=== PATIENT | male | born 1990 | race Caucasian/White ===

== ENCOUNTER 2018-07-05 13:07 | Emergency (ER) | payer SELFPAY ==
[2018-07-05 13:20] VITALS: BMI 28.3
[2018-07-05] MEDS ORDERED: FAMOTIDINE 20 MG/50 ML IVPB 20 MG/50 ML MG IVPB ONE ×2 (14:01→14:55)
[2018-07-05] MEDS ORDERED: ACETAMINOPHEN 1000 MG/100 ML VIAL (NON FORMULARY) IVPB ONE (14:01)
[2018-07-05] MEDS ORDERED: SODIUM CHLORIDE 1,000 ML IV STA (14:01)
[2018-07-05] MEDS ORDERED: MAG HYDROX/AL HYDROX/SIMETH -MYLANTA- ORAL SUSPENSION PO ONE (14:01)
--- NOTE | 2018-07-05 14:21 | PDOC ---
History of Present Illness - History of Present Illness Initial Comments: 07/05/18 14:33 The patient is a 27 year old male, with no significant past medical history, who presents to the emergency department with, palpitations, 1 hour of chest pain with associated shortness of breath and near syncope. 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 As per patient, he had a similar episode 3 days ago (07/02) at which time he was evaluated at [facility] with a negative workup which included a chest x-ray and labs. Patient notes another episode today, prompting his arrival to the ED. He denies similar episodes in the past. He denies any worsening or exacerbating factors. He denies any recent fevers, chills, headache or dizziness. He denies any recent nausea, vomit, diarrhea or constipation. He denies any recent dysuria , frequency, urgency or hematuria. Allergies: Penicillins. <Ling Owusu - Last Filed: 07/05/18 19:01> - General History Source: Patient Exam Limitations: No Limitations <Karan Ch - Last Filed: 07/05/18 19:07> - General Chief Complaint: Chest Pain Stated Complaint: CHEST PAIN Time Seen by Provider: 07/05/18 14:01 Past History <Ling Owusu - Last Filed: 07/05/18 19:01> - Past Medical History COPD: No - Suicide/Smoking/Psychosocial Hx Smoking History: Never smoked <Karan Ch - Last Filed: 07/05/18 19:07> - Past Medical History Allergies/Adverse Reactions: Allergies Allergy/AdvReac Type Severity Reaction Status Date / Time Penicillins Allergy Verified 07/05/18 13:20 Home Medications: Ambulatory Orders Pantoprazole Sodium [Protonix] 40 mg PO DAILY #30 tablet. 07/05/18 Ranitidine HCl [Zantac] 150 mg PO BID PRN #20 tablet 07/05/18 Review of Systems - Review of Systems Comments:: 07/05/18 14:33 GENERAL/CONSTITUTIONAL: No fever or chills. No weakness. HEAD, EYES, EARS, NOSE AND THROAT: No change in vision. No ear pain or discharge. No sore throat. CARDIOVASCULAR: + chest pain + shortness of breath +palpitations. RESPIRATORY: No cough, wheezing, or hemoptysis. GASTROINTESTINAL: +episgastric pain. No nausea, vomiting, diarrhea or constipation. GENITOURINARY: No dysuria, frequency, or change in urination. MUSCULOSKELETAL: +back pain. No joint or muscle swelling or pain. No neck pain. SKIN: No rash NEUROLOGIC: + Near syncope. No headache, vertigo, or change in strength/ sensation. ENDOCRINE: No increased thirst. No abnormal weight change. HEMATOLOGIC/LYMPHATIC: No anemia, easy bleeding, or history of blood clots. ALLERGIC/IMMUNOLOGIC: No hives or skin allergy. All Other Systems: Reviewed and Negative <Ling Owusu - Last Filed: 07/05/18 19:01> *Physical Exam - Vital Signs Last Vital Signs Temp Pulse Resp BP Pulse Ox 97.9 F 94 H 18 150/78 98 07/05/18 13:18 07/05/18 13:18 07/05/18 13:18 07/05/18 13:18 07/05/18 13:18 - Physical Exam Comments: 07/05/18 15:03 GENERAL: Awake, alert, and fully oriented, in no acute distress HEAD: No signs of trauma NECK: Normal ROM, supple, no lymphadenopathy, JVD, or masses LUNGS: Breath sounds equal, clear to auscultation bilaterally. No wheezes, and no crackles HEART: Regular rate and rhythm, normal S1 and S2, no murmurs, rubs or gallops ABDOMEN: +Epigastric tenderness. Negative [place] sign. Soft. No rebound. No masses EXTREMITIES: Normal range of motion, no edema. No clubbing or cyanosis. No cords, erythema, or tenderness NEUROLOGICAL: Cranial nerves II through XII grossly intact. Normal speech, normal gait SKIN: Warm, Dry, normal turgor, no rashes or lesions noted. <Ling Owusu - Last Filed: 07/05/18 19:01> - Vital Signs Last Vital Signs Temp Pulse Resp BP Pulse Ox 97.9 F 94 H 18 150/78 98 07/05/18 13:18 07/05/18 13:18 07/05/18 13:18 07/05/18 13:18 07/05/18 13:18 <Karan Ch - Last Filed: 07/05/18 19:07> Heart Score/ECG Review #1 ECG reviewed & interpreted by me at: 13:05 07/05/18 14:21 NSR 102, rightaward axis, incomplete RBBB, QTC 443 msec, no std/blayne <Karan Ch - Last Filed: 07/05/18 19:07> ED Treatment Course - LABORATORY CBC & Chemistry Diagram: 07/05/18 14:00 07/05/18 14:00 - ADDITIONAL ORDERS Additional order review: 07/05/18 14:00 RBC 5.39 MCV 87.8 MCHC 33.4 RDW 13.6 MPV 9.0 Neutrophils % 51.3 Lymphocytes % 39.0 Monocytes % 7.2 Eosinophils % 1.7 Basophils % 0.8 <Ling Owusu - Last Filed: 07/05/18 19:01> - LABORATORY CBC & Chemistry Diagram: 07/05/18 14:00 07/05/18 14:00 - RADIOLOGY Radiology Studies Ordered: Category Date Time Status CHEST PA & LAT [RAD] Stat Radiology 07/05/18 14:01 Ordered <Karan Ch - Last Filed: 07/05/18 19:07> Medical Decision Making - Medical Decision Making 07/05/18 14:18 A portion of this note was documented by scribe services under my direction. I have reviewed the details of the note, within reason, and agree with the documentation with the following case summary and management plan written by me. Patient treated in the ED. Nursing notes are reviewed and incorporated into the medical decision-making. Vital signs reviewed. Peripheral IV access obtained by the nurse, laboratory studies are drawn and sent, reviewed and interpreted by myself. Vital Signs Temp Pulse Resp BP Pulse Ox 97.9 F 94 H 18 150/78 98 07/05/18 13:18 07/05/18 13:18 07/05/18 13:18 07/05/18 13:18 07/05/18 13:18 27-year-old male with no medical history presents with chest pain rating to the back. The patient reports that he was well this morning. He was at work when he ate rice. Started developing a sharp epigastric and substernal chest pain rating to the mid back. Reports feeling somewhat short of breath. No fevers or chills. Denies prior history of cardiac disease or blood clots. Patient reported that he had this similar incident several days ago and went to [facility]. He had a chest x-ray blood work done and was told that he was fine. The patient was discharged. Here the patient's EKG demonstrates rightward axis deviation and incomplete right bundle branch block. These findings or potentially concerning for pulmonary embolism. Though with the abdominal pain, I suspect this may be gastritis. Aortic dissection is within the differential though less likely. We' ll obtain lipase rule out pancreatitis. Labs, IV fluids, chest x-ray. Likely will need a CAT scan reassess. 07/05/18 18:20 CBC, BMP 07/05/18 14:00 07/05/18 14:00 CMP Sodium 138 mmol/L (136-145) 07/05/18 14:00 Potassium 3.4 mmol/L (3.5-5.1) L 07/05/18 14:00 Chloride 100 mmol/L (98-107) 07/05/18 14:00 Carbon Dioxide 27 mmol/L (21-32) 07/05/18 14:00 Anion Gap 10 MMOL/L (8-16) 07/05/18 14:00 BUN 10 mg/dL (7-18) 07/05/18 14:00 Creatinine 1.0 mg/dL (0.55-1.3) 07/05/18 14:00 Creat Clearance w eGFR 88.98 (>60) 07/05/18 14:00 Random Glucose 146 mg/dL (74-106) H 07/05/18 14:00 Calcium 8.8 mg/dL (8.5-10.1) 07/05/18 14:00 Total Bilirubin 0.3 mg/dL (0.2-1) 07/05/18 14:00 AST 17 U/L (15-37) 07/05/18 14:00 ALT 25 U/L (13-61) 07/05/18 14:00 Alkaline Phosphatase 108 U/L (45-117) 07/05/18 14:00 Creatine Kinase 94 U/L (26-308) 07/05/18 14:00 Troponin I < 0.02 ng/ml (0.00-0.05) 07/05/18 14:00 Total Protein 7.4 g/dl (6.4-8.2) 07/05/18 14:00 Albumin 3.8 g/dl (3.4-5.0) 07/05/18 14:00 Lipase 196 U/L (73-393) 07/05/18 14:00 CT shows no evidence of acute intrathoracic pathology or PE. Several nonspecific slightly prominent mediastinal, bilateral hilar and bilateral axillary nymph nodes are noted. Pt was then c/o worsening throat discomfort. Stated feels like a burning sensation. Was given IV protonix, and carafate. 07/05/18 19:02 The patient feels better. I did inform him of the CT findings and EKG findings. I suspect that this is gastritis but will need follow up with cardiology ( abnormal ECG), GI (for endoscopy) and a PMD. Will discharge with protonix and zantac. Return precautions given. I discussed the physical exam findings, ancillary test results and final diagnoses with the patient. I answered all of the patient's questions. The patient was satisfied with the care received and felt comfortable with the discharge plan and treatment plan. The patient will call their primary care physician within 24 hours to arrange follow-up and will return to the Emergency Department with any new, persistant or worsening symptoms. <Karan Ch - Last Filed: 07/05/18 19:07> *DC/Admit/Observation/Transfer - Attestations Scribe Attestion: 07/05/18 14:37 Documentation prepared by Ling Owusu, acting as medical record clerk for Karan Ch MD. <Ling Owusu - Last Filed: 07/05/18 19:01> - Discharge Dispostion Decision to Admit order: No <Karan Ch - Last Filed: 07/05/18 19:07> Diagnosis at time of Disposition: Gastritis Qualifiers: Gastritis type: unspecified gastritis Chronicity: acute Gastritis bleeding: without bleeding Qualified Code(s): K29.00 - Acute gastritis without bleeding - Discharge Dispostion Disposition: HOME Condition at time of disposition: Improved - Prescriptions Prescriptions: Pantoprazole Sodium [Protonix] 40 mg PO DAILY #30 tablet. Ranitidine HCl [Zantac] 150 mg PO BID PRN #20 tablet PRN Reason: Gastritis - Referrals [place] [facility] [place] [facility] [place] [Provider Group] Dana Barraza MD [Staff Physician] - Javier Ledezma MD [Staff Physician] - - Patient Instructions Printed Discharge Instructions: DI for Gastritis, Butts Diet Additional Instructions: We have worked up your pain. Your EKG showed an incomplete right bundle branch block, but no other findings. Your CT scan showed no blood clots (pulmonary embolism) but did show some nonspecific lymph nodes. Please bring a copy of your CT scan to your doctors. Your troponin is negative. Given your workup, I advise that you take 40 mg protonix daily with 150 mg zantac every 12 hours as needed for symptom control for zantac. Please make an appointment with a corporate relations manager and depot manager. Call to schedule an appointment. If you have uncontrollable pain or difficulty breathing, please return to the ER. Print Language: ITALIAN
[2018-07-05 14:23] LABS: BASO % 0.8 % (0-2.0); EOS % 1.7 % (0-4.5); HEMATOCRIT 47.3 % (35.4-49); HEMOGLOBIN 15.8 GM/dL (11.7-16.9); MCH 29.3 pg (25.7-33.7); MCHC 33.4 g/dl (32.0-35.9); MEAN CELL VOLUME 87.8 fl (80-96); MONO % 7.2 % (3.8-10.2); NEUT % 51.3 % (42.8-82.8); PLATELET COUNT 249 K/MM3 (134-434); RBC 5.39 M/mm3 (4.00-5.60); RDW 13.6 % (11.9-15.9); WHITE BLOOD COUNT 6.1 K/mm3 (4.0-10.0)
[2018-07-05 14:49] LABS: ALBUMIN 3.8 g/dl (3.4-5.0); ALK PHOS 108 U/L (45-117); ANION GAP 10 MMOL/L (8-16); BILIRUBIN,TOTAL 0.3 mg/dL (0.2-1); BLOOD UREA NITROGEN 10 mg/dL (7-18); CALCIUM 8.8 mg/dL (8.5-10.1); CHLORIDE 100 mmol/L (98-107); CO2 27 mmol/L (21-32); GLUCOSE,RANDOM 146 mg/dL (74-106); LIPASE 196 U/L (73-393); POTASSIUM 3.4 mmol/L (3.5-5.1); SGOT/AST 17 U/L (15-37); SGPT/ALT 25 U/L (13-61); SODIUM 138 mmol/L (136-145); TOT PROT 7.4 g/dl (6.4-8.2)
[2018-07-05 14:53] LABS: INR 0.98 (0.83-1.09); PROTHROMBIN TIME (PATIENT) 11.6 SEC (9.7-13.0)
[2018-07-05] MEDS ORDERED: ACETAMINOPHEN INJECTION 100 ML IVPB ONE (14:55)
[2018-07-05] MEDS ORDERED: MAG HYDROX/AL HYDROX/SIMETH 30 ML UNIT-DOSE CUP ONE (14:55)
[2018-07-05 14:56] LABS: ACTIVATED PTT 29.2 SECONDS (25.2-36.5)
[2018-07-05] MEDS ORDERED: PANTOPRAZOLE SODIUM 40 MG VIAL IVPUSH ONE (17:57)
[2018-07-05] MEDS ORDERED: SUCRALFATE 1 GM TABLET (FP) PO ONE (17:57)
[2018-07-05] MEDS ORDERED: LIDOCAINE VISCOUS 2% ORAL/TOP 20 ML UNIT-DOSE CUP MM ONE (17:58)
[2018-07-05 19:19] VITALS: BP 123/84; PULSE 77; TEMP 98.2
--- NOTE | 2018-07-06 10:34 | EKG ---
Test Reason : Blood Pressure : / mmHG Vent. Rate : 102 BPM Atrial Rate : 102 BPM P-R Int : 140 ms QRS Dur : 106 ms QT Int : 340 ms P-R-T Axes : 063 108 048 degrees QTc Int : 443 ms SINUS TACHYCARDIA POSSIBLE LEFT ATRIAL ENLARGEMENT RIGHTWARD AXIS INCOMPLETE RIGHT BUNDLE BRANCH BLOCK NO PREVIOUS ECGS AVAILABLE Confirmed by DAYNE LAURENT MD ([id number]) on 07/06/2018 10:34:08 AM Referred By: Confirmed By:DAYNE LAURENT MD
== END 2018-07-05 19:20 | disposition home or self-care (01) ==
LOC: JER 13:07
PROC: 3E0337Z Introduction of Electrolytic and Water Balance Substance into Peripheral Vein, Percutaneous Approach (ICD-10-PCS; principal; 2018-07-05)
PROC: 3E033GC Introduction of Other Therapeutic Substance into Peripheral Vein, Percutaneous Approach (ICD-10-PCS; 2018-07-05)
PROC: 3E033GC Introduction of Other Therapeutic Substance into Peripheral Vein, Percutaneous Approach (ICD-10-PCS; 2018-07-05)
PROC: 3E033NZ Introduction of Analgesics, Hypnotics, Sedatives into Peripheral Vein, Percutaneous Approach (ICD-10-PCS; 2018-07-05)
DX: K29.00 Acute gastritis without bleeding (principal)
CPT/HCPCS: 36415; 71275-TC; 80053; 82550; 83690; 84484; 85025; 85379; 85610; 85730; 93005; 93010; 99282-25; J0131; J7030